=== PATIENT | female | born 1990 | race Caucasian/White ===

== ENCOUNTER 2023-05-27 19:01 | Emergency (ER) | payer OTHER ==
[~2023-05-27] VITALS: Ht 172.7 cm; Wt 68.5 kg
[2023-05-27 19:07] VITALS: BP 127/67; TEMP 98.4
[2023-05-27] MEDS ORDERED: CEPH500C2 PO (19:47)
[2023-05-27] MEDS ORDERED: TDAP [DIPH/PERTUSSIS/TET] 0.5 ML VIAL IM ONE (20:00)
[2023-05-27 20:15] VITALS: O2SAT 100
== END 2023-05-27 20:16 | disposition home or self-care (01) ==
LOC: ER 19:06
DX: S61.211A Laceration without foreign body of left index finger without damage to nail, initial encounter (principal); Z79.899 Other long term (current) drug therapy; Z88.5 Allergy status to narcotic agent; W25.XXXA Contact with sharp glass, initial encounter; Y93.89 Activity, other specified; Y92.89 Other specified places as the place of occurrence of the external cause; Y99.8 Other external cause status
CPT/HCPCS: 12001; 99283; A6403